=== PATIENT | male | born 1935 | race Caucasian/White ===

== ENCOUNTER 2022-05-20 14:14 | Inpatient (IN) | payer MEDICARE ==
[~2022-05-20] VITALS: Ht 172.7 cm; Wt 81.2 kg
--- NOTE | 2022-05-20 14:48 | NUR ---
MOVE SHEET SUBMITTED.
--- NOTE | 2022-05-20 15:10 | NUR ---
established IV line lefrt arm , blood sample obtained sent to lab
[2022-05-20] MEDS ORDERED: ATOR80TA PO (15:13)
[2022-05-20] MEDS ORDERED: CLOP75TA15 PO (15:13)
[2022-05-20] MEDS ORDERED: PROP10DR2 EACHEYE (15:13)
[2022-05-20] MEDS ORDERED: ASPI-1169 PO (15:13)
--- NOTE | 2022-05-20 15:15 | NUR ---
TAKEN TO CT VIA JAZMINE
--- NOTE | 2022-05-20 15:31 | NUR ---
COVID SWAB DONE AND SENT TO LAB
[2022-05-20 15:37] LABS: BASOPHILS % (AUTO) 0.4 % (0.0-2.0); EOSINOPHILS % (AUTO) 1.6 % (0.0-6.0); HEMATOCRIT 49 % (39-51); HEMOGLOBIN 16.6 g/dL (13.5-17.5); LYMPHOCYTES # (AUTO) 1.2 K/uL (0.8-4.8); MEAN CORPUSCULAR HGB CONC 34 g/dl (31.0-36.0); MEAN CORPUSCULAR VOLUME 101 fL (80-96); MONOCYTES # (AUTO) 0.7 K/uL (0.1-1.30); MONOCYTES % (AUTO) 10.2 % (2.0-12.0); NEUTROPHILS # (AUTO) 4.8 K/uL (1.8-8.9); NEUTROPHILS % (AUTO) 69.8 % (43.0-81.0); PLATELET COUNT (AUTO) 152 K/uL (150-450); RED BLOOD CELL COUNT(AUTO) 4.83 MIL/uL (4.5-6.0); WHITE BLOOD COUNT (AUTO) 6.8 K/uL (4.3-11.0)
[2022-05-20 15:56] LABS: ALANINE AMINOTRANSFERASE 36 U/L (12-78); ALBUMIN 3.5 g/dL (3.4-5.0); ALKALINE PHOSPHATASE 76 U/L (46-116); ASPARTATE AMINOTRANSFERASE 65 U/L (15-37); BILIRUBIN,DIRECT 0.2 mg/dL (0.0-0.2); BILIRUBIN,TOTAL 0.8 mg/dL (0.2-1.0); CALCIUM, SERUM 8.6 mg/dL (8.5-10.1); CARBON DIOXIDE 24 mmol/L (21-32); CHLORIDE 99 mmol/L (98-107); CREATININE 1.3 mg/dL (0.6-1.3); GLUCOSE 132 mg/dL (74-106); POTASSIUM 3.7 mmol/L (3.5-5.1); SODIUM SERUM 132 mmol/L (136-145); TOTAL PROTEIN, SERUM 7.8 g/dL (6.4-8.2); UREA NITROGEN, BLOOD 15 mg/dL (7-18)
[2022-05-20 17:12] LABS: THYROID STIMULATING HORMONE 1.833 uIU/mL (0.358-3.74)
[2022-05-20] MEDS ORDERED: ONDANSETRON HCL/PF 4 MG/2 ML VIAL IVP PRN (17:30)
[2022-05-20] MEDS ORDERED: Z GUARD REMEDY 4 OZ OINT TP PRN (17:30)
[2022-05-20] MEDS ORDERED: ACETAMINOPHEN 325 MG TABLET PO PRN (17:30)
--- NOTE | 2022-05-20 19:25 | NUR ---
PT AWAKE AND ALERT RESTING COMFORTABLY TOLERATING RA WELL. V/S WNL.CALL LIGHT WITHIN REACH.
--- NOTE | 2022-05-20 19:30 | NUR ---
bed 108
--- NOTE | 2022-05-20 19:34 | NUR ---
CALLED FOR REPORT. NURSE NOT AVAILABLE.
--- NOTE | 2022-05-20 19:58 | NUR ---
RN NOTES RECEIVED ER ADMISSION REPORT FROM MARLIN VENTURA. ALL PERTINENT ADMISSION INFO REGARDING PT NOTED. WILL WAIT FOR PT TO BE TRANSFERRED TO UNIT AND ADDRESS NEEDS ACCORDINGLY. PRINTING ROLLER HANDLER MADE AWARE.
--- NOTE | 2022-05-20 19:58 | NUR ---
REPORT GIVEN TO MARLIN RAGLAND FOR LELA
--- NOTE | 2022-05-20 20:10 | NUR ---
PT TRANSPORTED TO ROOM 106 VIA [facility] IN STABLE CONDITION
--- NOTE | 2022-05-20 20:10 | NUR ---
RN NOTES RECEIVED PT FROM ER VIA [facility] ACCOMPANIED BY 2 ER STAFF AND TRANSFERRED TO BED VIA 2 PERSON ASSIST. PT IS A/OX4; ON ROOM AIR WITH RESPIRATIONS EVEN AND UNLABORED. COMPREHENSIVE PHYSICAL ASSESSMENT AND PATIENT CARE DONE. CALL LIGHT WITHIN REACH, SAFETY MEASURES AND ISOLATION PRECAUTION IN PLACE, WILL CONTINUE MONITOR AND ASSESS THROUGHOUT THE SHIFT. WILL CARRY OUT MD ORDERS ACCORDINGLY. ANALYTICAL CONSULTANT MADE AWARE.
[2022-05-20 20:15] VITALS: BP 141/71
[2022-05-20] MEDS: ENOXAPARIN SODIUM 40 MG/0.4 ML DISP.SYRIN SQ SCH (20:25)
[2022-05-20] MEDS: IV 1/2NS 1000 ML 1,000 ML IV PRN (20:26)
[2022-05-20] MEDS: ATORVASTATIN 40 MG TABLET PO SCH (21:59)
[2022-05-21 04:00] VITALS: BP 150/85
--- NOTE | 2022-05-21 04:00 | NUR ---
RN NOTES PATIENT REMAINED TO BE IN NO SIGNS OF ACUTE RESPIRATORY DISTRESS ,SAFE ENVIRONMENT MAINTAINED FOR PT. AM PATIENT CARE ASSISTANCE RENDERED. WILL CONTINUE TO MONITOR AND REASSESS FOR ANY CHANGES THROUGHOUT THE SHIFT.
[2022-05-21 06:28] LABS: BASOPHILS % (AUTO) 0.4 % (0.0-2.0); HEMATOCRIT 46 % (39-51); HEMOGLOBIN 15.7 g/dL (13.5-17.5); LYMPHOCYTES # (AUTO) 1.4 K/uL (0.8-4.8); LYMPHOCYTES % (AUTO) 27.4 % (20.0-44.0); MEAN CORPUSCULAR HGB CONC 34 g/dl (31.0-36.0); MEAN CORPUSCULAR VOLUME 101 fL (80-96); MONOCYTES # (AUTO) 0.6 K/uL (0.1-1.30); MONOCYTES % (AUTO) 11.5 % (2.0-12.0); NEUTROPHILS # (AUTO) 2.9 K/uL (1.8-8.9); NEUTROPHILS % (AUTO) 57.7 % (43.0-81.0); PLATELET COUNT (AUTO) 133 K/uL (150-450); RED BLOOD CELL COUNT(AUTO) 4.57 MIL/uL (4.5-6.0)
[2022-05-21 06:54] LABS: BILIRUBIN,TOTAL 0.8 mg/dL (0.2-1.0); CALCIUM, SERUM 8.2 mg/dL (8.5-10.1); CREATININE 0.9 mg/dL (0.6-1.3); MAGNESIUM 2.4 mg/dL (1.8-2.4); PHOSPHORUS 2.8 mg/dL (2.5-4.9); POTASSIUM 3.6 mmol/L (3.5-5.1); TOTAL PROTEIN, SERUM 6.9 g/dL (6.4-8.2)
--- NOTE | 2022-05-21 07:28 | NUR ---
ORACLE APPLICATION CONSULTANT OPENING NOTES: RECEIVED PATIENT IN BED, ASLEEP BUT EASILY AROUSES TO VOICE AND SOUND. NO SOB NOTED, BREATHING EVEN AND UNLABORED. ON RA WITH OXYGEN SATURATION OF 94%. IV ACCESS ON LEFT HAND INTACT, INFUSING WITH 1/2 NS @ 75 ML/HR, IV SITE PATENT, WITH NO S/S INFILTRATION. CALL LIGHT WITHIN REACH. BED LOCKED AND IN LOWEST POSITION. ALL SAFETY MEASURES KIN PLACE. ISOLATION PRECAUTION MAINTAINED. INSTRUCTED PATIENT TO USE CALL LIGHT IF NEEDED. WILL CONTINUE TO MONITOR PATIENT THROUGHOUT SHIFT.
[2022-05-21] MEDS: CLOPIDOGREL BISULFATE 75 MG TABLET PO SCH (08:08)
[2022-05-21] MEDS: ASPIRIN 81 MG TAB.CHEW PO SCH (08:08)
[2022-05-21] MEDS: IV 1/2NS 1000 ML 1,000 ML IV PRN (08:09)
--- NOTE | 2022-05-21 10:30 | NUR ---
PT WISAM CAME BY AND ASSESSED THE PATIENT
[2022-05-21 12:00] VITALS: BP 164/64
--- NOTE | 2022-05-21 19:05 | NUR ---
WATER ANALYST CLOSING NOTES: PATIENT IN BED, AWAKE, ALERT, ORIENTED X 3. PATIENT REMAINS STABLE THE ENTIRE SHIFT. NO C/O PAIN OR DISCOMFORT AT THIS TIME. WILL ENDORSE TO INCOMING NURSE FOR CONTINUITY OF CARE.
--- NOTE | 2022-05-21 19:30 | NUR ---
MS RN OPENING NOTES RECEIVED PATIENT IN BED AWAKE. A/O X3. BREATHING EVEN AND NON-LABORED ON ROOM AIR. NOT IN APPARENT DISTRESS. DENIES PAIN AT THIS TIME. HAS LEFT HAND IV ACCESS #20G WITH 1/2 NS RUNNING AT 75 ML/HR. NO S/S OF INFILTRATION NOTED. ON CONTACT AND DROPLET PRECAUTIONS. SAFETY MEASURES IN PLACE: BED LOW AND LOCKED, BED ALARM ON, SIDE RAILS UP X2, CALL LIGHT WITHIN REACH. WILL CONTINUE POC.
[2022-05-21 20:00] VITALS: BP 120/64
[2022-05-21] MEDS: ENOXAPARIN SODIUM 40 MG/0.4 ML DISP.SYRIN SQ SCH (21:00)
[2022-05-21] MEDS: ATORVASTATIN 40 MG TABLET PO SCH (21:01)
[2022-05-22] MEDS: IV 1/2NS 1000 ML 1,000 ML IV PRN ×2 (01:45→14:33)
[2022-05-22 04:00] VITALS: BP 163/79
--- NOTE | 2022-05-22 07:21 | NUR ---
MS RN CLOSING NOTES PATIENT LAYING IN BED ASLEEP, EASY TO AROUSE. A/O X3. ABLE TO VERBALIZE NEEDS. NO SOB OR NOTED, TOLERATING ROOM AIR WELL. NOT IN ACUTE DISTRESS. NO C/O PAIN. AFEBRILE. HAS LEFT HAND IV ACCESS #20G WITH 1/2 NS RUNNING AT 75 ML/HR. INTACT, PATENT AND FLUSHING. ALL DUE MEDS GIVEN AND NEEDS ATTENDED. HAS BILATERAL KNEE SCABS, NO BLEEDING NOTED. AMBULATORY WITH ASSIST. SAFETY MEASURES MAINTAINED. WILL ENDORSE TO NEXT SHIFT FOR LELA.
--- NOTE | 2022-05-22 07:28 | NUR ---
FOOD PROCESSING CHEMIST OPENING NOTES: RECEIVED PATIENT AWAKE, NO SOB NOTED, BREATHING EVEN AND UNLABORED. NOT IN DISTRESS, DENIES ANY PAIN. IV ACCESS ON LEFT HAND INTACT, INFUSING WITH 1/2 NS @ 75 ML/HR. CALL LIGHT WITHIN REACH. BED LOCKED AND IN LOWEST POSITION. ALL SAFETY MEASURES KIN PLACE. ISOLATION PRECAUTION MAINTAINED. CALL LIGHT WITHIN REACH. INSTRUCTED PATIENT TO USE CALL LIGHT IF NEEDED.WILL CONTINUE PLAN OF CARE.
[2022-05-22 07:34] LABS: BASOPHILS % (AUTO) 0.5 % (0.0-2.0); EOSINOPHILS % (AUTO) 4.1 % (0.0-6.0); HEMATOCRIT 43 % (39-51); HEMOGLOBIN 14.7 g/dL (13.5-17.5); LYMPHOCYTES # (AUTO) 1.2 K/uL (0.8-4.8); LYMPHOCYTES % (AUTO) 25.3 % (20.0-44.0); MEAN CORPUSCULAR HGB CONC 34 g/dl (31.0-36.0); MEAN CORPUSCULAR VOLUME 99 fL (80-96); MONOCYTES # (AUTO) 0.4 K/uL (0.1-1.30); MONOCYTES % (AUTO) 9.5 % (2.0-12.0); NEUTROPHILS # (AUTO) 2.9 K/uL (1.8-8.9); NEUTROPHILS % (AUTO) 60.6 % (43.0-81.0); PLATELET COUNT (AUTO) 151 K/uL (150-450); RED BLOOD CELL COUNT(AUTO) 4.31 MIL/uL (4.5-6.0); WHITE BLOOD COUNT (AUTO) 4.7 K/uL (4.3-11.0)
[2022-05-22 07:59] LABS: CALCIUM, SERUM 8.3 mg/dL (8.5-10.1); MAGNESIUM 2.2 mg/dL (1.8-2.4); PHOSPHORUS 3.2 mg/dL (2.5-4.9); POTASSIUM 3.4 mmol/L (3.5-5.1)
[2022-05-22] MEDS: CLOPIDOGREL BISULFATE 75 MG TABLET PO SCH (08:02)
[2022-05-22] MEDS: ASPIRIN 81 MG TAB.CHEW PO SCH (08:03)
--- NOTE | 2022-05-22 10:12 | NUR ---
RN NOTES NOTED WITH ORDER OF CHEST XRAY INFORMED DULL COAT MILL OPERATOR, PER KELVIN IT'S NOT POPULATING IN THERE SYSTEM AND WILL TRY TO FIGURE OUT. WILL CONTINUE POC.
[2022-05-22] MEDS ORDERED: POTASSIUM CHLORIDE 20 MEQ TAB.PRT.SR PO SCH (11:00)
[2022-05-22 12:00] VITALS: BP 145/78
--- NOTE | 2022-05-22 12:42 | NUR ---
RN NOTES XRAY DONE.
--- NOTE | 2022-05-22 17:08 | NUR ---
RN NOTES INFORMED MD OF 800AM BLOOD PRESSURE 161/85 4PM 155/80, NO C/O OF CHEST PAIN, NO C/O OF DIZZINESS OR HEADACHE, RUDI GLAZE CARRIER NOTIFIED, NO NEW ORDERS NOTED.
--- NOTE | 2022-05-22 18:05 | NUR ---
MS RN CLOSING NOTES PATIENT LAYING IN BED AWAKE, ALERT AND VERBALLY RESPONSIVE, NOTED WITH CONFUSION,DENIES ANY PAIN, NO SOB NOTED, TOLERATING ROOM AIR WELL SATURATION @94%. NOT IN ACUTE DISTRESS. AFEBRILE. HAS LEFT HAND IV ACCESS #20G WITH 1/2 NS RUNNING AT 75 ML/HR. INTACT, PATENT AND FLUSHING. HAS BILATERAL KNEE SCABS, NO BLEEDING NOTED. AMBULATORY WITH ASSIST. SAFETY MEASURES MAINTAINED. BED ALARM ON. CALL LIGHT WITHIN REACH. WILL ENDORSE TO NEXT SHIFT FOR LELA. Addendum: 05/22/22 at 1922 by SHIVANI HOLDEN RN NOTED EPISODES OF RESTLESSNESS AND STANDING UP AND WALKING TO THE BATHROOM WITHOUT ASKING FOR HELP, REDIRECT PATIENT MULTIPLE TIMES, INFORMED MD, AWAITING ORDERS, ENDORSED TO PRIMER ASSEMBLER NURSE.
--- NOTE | 2022-05-22 19:23 | NUR ---
RN NOTES CALLED XRAY PER KELVIN THERE'S NO RESULT YET, WILL FOLLOW UP, ENDORSE TO REFRIGERATING ENGINEER NURSE.
[2022-05-22 20:00] VITALS: BP 143/71
[2022-05-22] MEDS: ATORVASTATIN 40 MG TABLET PO SCH (21:02)
[2022-05-22] MEDS: ENOXAPARIN SODIUM 40 MG/0.4 ML DISP.SYRIN SQ SCH (21:02)
--- NOTE | 2022-05-22 21:47 | NUR ---
MS RN OPENING NOTE PT RECEIVED IN BED, AWAKE, A&O X3, CALM, COOPERATIVE. PT ON RA WITH CURRENT O2SAT OF 95%; NO S/S OF RESP DISTRESS, NO SOB OR COUGH, NON-LABORED AND EQUAL BREATHING. VSS, WILL CONTINUE TO MONITOR NEEDED. PT NOTED TO BE AMBULATORY WITH ASSIST. IV ACCESS ON LEFT HAND 20G INTACT AND PATENT, FLUSHES EASILY WITH NO RESISTANCE; 1/2 NS INFUSING AT 75 ML/HR. BED IN LOWEST POSITION, CALL LIGHT WITHIN REACH, SIDE RAILS UP X2. WILL CONTINUE TO MONITOR THROUGHOUT THE NIGHT.
[2022-05-23 04:00] VITALS: BP 141/62
[2022-05-23] MEDS: IV 1/2NS 1000 ML 1,000 ML IV PRN (05:27)
--- NOTE | 2022-05-23 06:48 | NUR ---
MS RN CLOSING NOTE PT REMAINS IN BED, AWAKE, A&O X3 WITH PERIODS OF CONFUSION BUT OTHERWISE CALM, COOPERATIVE. CONTINUES TO BE ON RA WITH O2SAT RANGING FROM 95%-96%; NO S/S OF RESP DISTRESS, NO SOB OR COUGH, NON-LABORED AND EQUAL BREATHING. VSS THROUGHOUT THE NIGHT WITH NO SIGNIFICANT CHANGES. IV ACCESS ON LEFT HAND 20G INTACT AND PATENT, FLUSHES EASILY WITH NO RESISTANCE; 1/2 NS INFUSING AT 75 ML/HR. ALL DUE MEDS ADMINISTERED DURING THE NIGHT. BED IN LOWEST POSITION, CALL LIGHT WITHIN REACH, SIDE RAILS UP X2. WILL ENDORSE TO DAYSHIFT NURSE TO CONTINUE CARE.
--- NOTE | 2022-05-23 07:52 | NUR ---
MANAGER METROLOGY OPENING NOTES: RECEIVED PATIENT AWAKE, NO SOB NOTED, BREATHING EVEN AND UNLABORED. NOT IN DISTRESS, DENIES ANY PAIN. IV ACCESS ON LEFT HAND PATENT AND INTACT, INFUSING WITH 1/2 NS @ 75 ML/HR. CALL LIGHT WITHIN REACH. BED LOCKED AND IN LOWEST POSITION. ALL SAFETY MEASURES KIN PLACE. ISOLATION PRECAUTION MAINTAINED. CALL LIGHT WITHIN REACH. INSTRUCTED PATIENT TO USE CALL LIGHT IF NEEDED.WILL CONTINUE PLAN OF CARE.
[2022-05-23] MEDS: CLOPIDOGREL BISULFATE 75 MG TABLET PO SCH (08:04)
[2022-05-23] MEDS: ASPIRIN 81 MG TAB.CHEW PO SCH (08:04)
--- NOTE | 2022-05-23 09:17 | NUR ---
WOUND CARE CONSULT: REVIEWED CHART, NURSING DOCUMENTATION AND PHOTO WHICH INDICATES DRY ABRASIONS TO BILATERAL KNEES, PRESENT ON ADMISSION. OBSERVE AREAS. DISCUSSED SKIN PROTECTION WITH NURSING STAFF. WILL SEE PRN. IN AGREEMENT WITH PLAN OF CARE.
--- NOTE | 2022-05-23 10:53 | NUR ---
RN NOTES CALLED XRAY TO FOLLOW UP RESULTS FOR 05/22, PER FREIGHT BROKER AGENT STILL PENDING, XRAY 05/23 WAS DONE. WILL CONTINUE PLAN OF CARE.
--- NOTE | 2022-05-23 14:48 | NUR ---
RN NOTES PATIENT LEFT THE HOSPITAL WITH 2 EMT'S [employer]IA [employer]. ALL PERSONAL BELONGINGS AND DISCHARGE PAPER WORKS RELEASED TO THE PATIENT. PATIENT IS STABLE DURING DISCHARGE.
== END 2022-05-23 14:35 | DRG 73 ==
LOC: ER 14:16 → TELE1 19:34 → MEDSG1 21:20
PROVIDERS: ADMIT Internal Medicine; ATTEND Nurse Practitioner Acute Care
DX: G90.8 Other disorders of autonomic nervous system (principal); U07.1 COVID-19; E87.1 Hypo-osmolality and hyponatremia; E86.0 Dehydration; E78.5 Hyperlipidemia, unspecified; R29.6 Repeated falls; G30.9 Alzheimer's disease, unspecified; Z86.73 Personal history of transient ischemic attack (TIA), and cerebral infarction without residual deficits; Z79.02 Long term (current) use of antithrombotics/antiplatelets; Z79.82 Long term (current) use of aspirin; Z79.899 Other long term (current) drug therapy; F02.80 Dementia in other diseases classified elsewhere, unspecified severity, without behavioral disturbance, psychotic disturbance, mood disturbance, and anxiety; E88.09 Other disorders of plasma-protein metabolism, not elsewhere classified; I10 Essential (primary) hypertension; W19.XXXA Unspecified fall, initial encounter; Y92.9 Unspecified place or not applicable
CPT/HCPCS: 36415; 70450-TC; 71045-TC; 73564-TC; 80048-TC; 80053-TC; 80076-TC; 83735-TC; 84100-TC; 84443-TC; 84484-TC; 85025-TC; 85378-TC; 85730-TC; 86140-TC; 87081-TC; 97112-TC; 97116-TC; 97530-TC; A6403; C9803; G0378; J1650; J3490

== ENCOUNTER 2023-03-03 05:04 | Emergency (ER) | payer MEDICARE ==
[~2023-03-03] VITALS: Ht 175.3 cm; Wt 99.8 kg
[~2023-03-03 05:04] MED LIST: ASPI-1169 PO; ATOR80TA PO; CLOP75TA15 PO; PROP10DR2 EACHEYE
[2023-03-03] MEDS ORDERED: TDAP [DIPH/PERTUSSIS/TET] 0.5 ML VIAL IM ONE ×2 (06:00→06:15)
[2023-03-03 09:51] VITALS: BP 152/78; TEMP 98; O2SAT 96
== END 2023-03-03 09:51 | disposition home or self-care (01) ==
LOC: ER 05:10
DX: S41.112A Laceration without foreign body of left upper arm, initial encounter (principal); S09.8XXA Other specified injuries of head, initial encounter; G31.9 Degenerative disease of nervous system, unspecified; G93.89 Other specified disorders of brain; G30.9 Alzheimer's disease, unspecified; F02.80 Dementia in other diseases classified elsewhere, unspecified severity, without behavioral disturbance, psychotic disturbance, mood disturbance, and anxiety; I10 Essential (primary) hypertension; E78.5 Hyperlipidemia, unspecified; Z79.899 Other long term (current) drug therapy; W01.0XXA Fall on same level from slipping, tripping and stumbling without subsequent striking against object, initial encounter; Y93.89 Activity, other specified; Y92.89 Other specified places as the place of occurrence of the external cause; Y99.8 Other external cause status
CPT/HCPCS: 70450-TC; 72125-TC; 90715

== ENCOUNTER 2023-04-19 07:14 | Emergency (ER) | payer MEDICARE ==
[~2023-04-19] VITALS: Ht 175.3 cm; Wt 95.3 kg
[2023-04-19] MEDS ORDERED: HYDROCODONE/APAP 5/325MG TABLET PO ONE (07:30)
[2023-04-19] MEDS ORDERED: HYDROCODONE/APAP 5/325MG TABLET ONE (07:44)
[2023-04-19] MEDS ORDERED: FURO-144 PO (07:48)
[2023-04-19] MEDS ORDERED: POTA8TAB3 PO (07:48)
[2023-04-19] MEDS ORDERED: ACET-868 PO (07:48)
[2023-04-19] MEDS ORDERED: LOSA25TA27 PO (07:48)
[2023-04-19] MEDS ORDERED: IBUP-1955 PO (07:48)
[2023-04-19 07:49] LABS: BASOPHILS % (AUTO) 0.7 % (0.0-2.0); EOSINOPHILS # (AUTO) 0.2 K/uL (0.0-0.7); EOSINOPHILS % (AUTO) 3.1 % (0.0-6.0); HEMATOCRIT 43 % (39-51); HEMOGLOBIN 14.4 g/dL (13.5-17.5); LYMPHOCYTES # (AUTO) 0.5 K/uL (0.8-4.8); LYMPHOCYTES % (AUTO) 9.8 % (20.0-44.0); MEAN CORPUSCULAR HEMOGLOBIN 34 PG (26.0-33.0); MEAN CORPUSCULAR HGB CONC 34 g/dl (31.0-36.0); MEAN CORPUSCULAR VOLUME 102 fL (80-96); MONOCYTES # (AUTO) 0.4 K/uL (0.1-1.30); MONOCYTES % (AUTO) 7.5 % (2.0-12.0); NEUTROPHILS # (AUTO) 4.4 K/uL (1.8-8.9); NEUTROPHILS % (AUTO) 78.9 % (43.0-81.0); PLATELET COUNT (AUTO) 199 K/uL (150-450); RED BLOOD CELL COUNT(AUTO) 4.22 MIL/uL (4.5-6.0); RED CELL DISTRIBUTION WIDTH 14.1 % (11.5-15.0); WHITE BLOOD COUNT (AUTO) 5.6 K/uL (4.3-11.0)
[2023-04-19 08:04] VITALS: BP 131/71; TEMP 98; O2SAT 100
[2023-04-19 08:10] LABS: ALANINE AMINOTRANSFERASE 31 U/L (12-78); ALBUMIN 3.7 g/dL (3.4-5.0); ALKALINE PHOSPHATASE 79 U/L (46-116); ASPARTATE AMINOTRANSFERASE 19 U/L (15-37); BILIRUBIN,DIRECT 0.2 mg/dL (0.0-0.2); BILIRUBIN,TOTAL 0.9 mg/dL (0.2-1.0); CALCIUM, SERUM 8.8 mg/dL (8.5-10.1); CHLORIDE 103 mmol/L (98-107); CREATININE 1.3 mg/dL (0.6-1.3); GLUCOSE 113 mg/dL (74-106); POTASSIUM 4.1 mmol/L (3.5-5.1); SODIUM SERUM 137 mmol/L (136-145); TOTAL PROTEIN, SERUM 7.1 g/dL (6.4-8.2); UREA NITROGEN, BLOOD 19 mg/dL (7-18)
[2023-04-19 08:36] LABS: CARBON DIOXIDE 26 mmol/L (21-32)
[2023-04-19 10:25] LABS: APPEARANCE,URINE CLEAR (CLEAR); BILIRUBIN,URINE NEGATIVE (NEGATIVE); BLOOD, URINE TRACE-INTA Ery/uL (NEGATIVE); KETONES,URINE NEGATIVE (NEGATIVE); LEUKOCYTE ESTERASE ,URINE 2+ (NEGATIVE); NITRITE, URINE NEGATIVE (NEGATIVE); PROTEIN,URINE NEGATIVE (NEGATIVE); UGLUCOSE NEGATIVE (NEGATIVE); UROBILINOGEN,URINE 0.2 EU/dL (0.2)
[2023-04-19 10:26] LABS: COLOR,URINE LIGHT YELLOW (YELLOW)
[2023-04-19 10:41] LABS: RBC,URINE 0-2 /HPF (0-2)
[2023-04-19 10:42] LABS: ADD URINE CULTURE YES; SQUAMOUS EPITHELIAL CELL,UR Rare /HPF (None Seen)
[2023-04-19 10:43] LABS: BACTERIA,URINE Few /HPF (None Seen)
[2023-04-19] MEDS ORDERED: CEFTRIAXONE 1GM BAG (ER ONLY) 50 ML IV ONE (10:44)
[2023-04-19] MEDS ORDERED: CEPH500C2 PO (10:53)
[2023-04-19] MEDS ORDERED: CEFTRIAXONE 1 G in IV D5W 50 ML IV ONE (11:00)
== END 2023-04-19 12:54 | disposition home or self-care (01) ==
LOC: ER 07:33
DX: M16.0 Bilateral primary osteoarthritis of hip (principal); N39.0 Urinary tract infection, site not specified; K57.30 Diverticulosis of large intestine without perforation or abscess without bleeding; R60.0 Localized edema; G30.9 Alzheimer's disease, unspecified; F02.80 Dementia in other diseases classified elsewhere, unspecified severity, without behavioral disturbance, psychotic disturbance, mood disturbance, and anxiety; I10 Essential (primary) hypertension; E78.5 Hyperlipidemia, unspecified; Z79.899 Other long term (current) drug therapy; Z79.82 Long term (current) use of aspirin
CPT/HCPCS: 99285; 93970; 71250; 96365; 71045; 93005; 74176; 85025; 80048; 87086; 80076; 81001; 36415; 84484; 83880; J0696 ×2; J7060

== ENCOUNTER 2023-07-05 09:29 | Inpatient (IN) | payer MEDICARE ==
[~2023-07-05] VITALS: Ht 165.1 cm; Wt 96.7 kg
[~2023-07-05 09:29] MED LIST changes: +ACET-868 PO; +CEPH500C2 PO; +FURO-144 PO; +IBUP-1955 PO; +LOSA25TA27 PO; +POTA8TAB3 PO
[2023-07-05] MEDS ORDERED: FURO80TA3 PO (10:04)
[2023-07-05] MEDS ORDERED: METH-647 PO (10:04)
[2023-07-05] MEDS ORDERED: GABA-532 PO (10:04)
[2023-07-05] MEDS ORDERED: ACET-2605 PO (10:04)
[2023-07-05 11:04] LABS: INR 0.91 (0.91-1.10); PROTHROMBIN TIME 9.7 SECS (9.2-11.1)
[2023-07-05 11:06] LABS: ALANINE AMINOTRANSFERASE 98 U/L (12-78); ALBUMIN 3.3 g/dL (3.4-5.0); ALKALINE PHOSPHATASE 65 U/L (46-116); ASPARTATE AMINOTRANSFERASE 88 U/L (15-37); BILIRUBIN,TOTAL 0.6 mg/dL (0.2-1.0); CALCIUM, SERUM 8.6 mg/dL (8.5-10.1); CARBON DIOXIDE 19 mmol/L (21-32); CHLORIDE 100 mmol/L (98-107); GLUCOSE 114 mg/dL (74-106); NT-PRO BNP 293 pg/mL (0-125); POTASSIUM 5.7 mmol/L (3.5-5.1); SODIUM SERUM 129 mmol/L (136-145); TOTAL PROTEIN, SERUM 7.6 g/dL (6.4-8.2); UREA NITROGEN, BLOOD 15 mg/dL (7-18)
[2023-07-05 11:21] LABS: BASOPHILS % (AUTO) 0.7 % (0.0-2.0); EOSINOPHILS # (AUTO) 0.2 K/uL (0.0-0.7); EOSINOPHILS % (AUTO) 3.1 % (0.0-6.0); HEMATOCRIT 43 % (39-51); HEMOGLOBIN 14.3 g/dL (13.5-17.5); LYMPHOCYTES # (AUTO) 0.8 K/uL (0.8-4.8); LYMPHOCYTES % (AUTO) 15.8 % (20.0-44.0); MEAN CORPUSCULAR HEMOGLOBIN 35 PG (26.0-33.0); MEAN CORPUSCULAR HGB CONC 33 g/dl (31.0-36.0); MEAN CORPUSCULAR VOLUME 105 fL (80-96); MONOCYTES # (AUTO) 0.7 K/uL (0.1-1.30); MONOCYTES % (AUTO) 13.3 % (2.0-12.0); NEUTROPHILS # (AUTO) 3.3 K/uL (1.8-8.9); NEUTROPHILS % (AUTO) 67.1 % (43.0-81.0); PLATELET COUNT (AUTO) 175 K/uL (150-450); RED BLOOD CELL COUNT(AUTO) 4.12 MIL/uL (4.5-6.0); RED CELL DISTRIBUTION WIDTH 14.9 % (11.5-15.0); WHITE BLOOD COUNT (AUTO) 4.9 K/uL (4.3-11.0)
[2023-07-05] MEDS ORDERED: IV NS 0.9% 1,000 ML IV ONE (11:30)
[2023-07-05] MEDS ORDERED: ONDANSETRON HCL/PF 4 MG/2 ML VIAL IVP PRN (12:00)
[2023-07-05] MEDS ORDERED: ACETAMINOPHEN 325 MG TABLET PO PRN (12:00)
[2023-07-05] MEDS ORDERED: IV NS 0.9% 1,000 ML IV PRN (12:00)
[2023-07-05] MEDS ORDERED: MORPHINE SULFATE INJ 2 MG/ML DISP.SYRIN IV PRN (12:00)
[2023-07-05 12:39] LABS: APPEARANCE,URINE CLEAR (CLEAR); BILIRUBIN,URINE NEGATIVE (NEGATIVE); BLOOD, URINE TRACE-INTA Ery/uL (NEGATIVE); COLOR,URINE YELLOW (YELLOW); KETONES,URINE NEGATIVE (NEGATIVE); LEUKOCYTE ESTERASE ,URINE NEGATIVE (NEGATIVE); NITRITE, URINE NEGATIVE (NEGATIVE); PH,URINE 7.5 (5.0-8.0); PROTEIN,URINE 1+ mg/dl (NEGATIVE); UGLUCOSE NEGATIVE (NEGATIVE); UROBILINOGEN,URINE 0.2 EU/dL (0.2)
[2023-07-05] MEDS: GABAPENTIN 100 MG CAPSULE PO SCH ×2 (13:00→17:37)
[2023-07-05 13:18] LABS: ADD URINE CULTURE NO; BACTERIA,URINE None seen /HPF (None Seen); MUCUS,URINE Few /LPF (None Seen); WBC,URINE NONE SEEN /HPF (0-3)
[2023-07-05 14:41] VITALS: BP 157/69; TEMP 98.3; O2SAT 98
[2023-07-05 16:00] VITALS: BP 166/68; TEMP 98.4; O2SAT 96
[2023-07-05] MEDS: ENOXAPARIN SODIUM 40 MG/0.4 ML DISP.SYRIN SQ SCH (16:25)
[2023-07-05] MEDS: LOSARTAN POTASSIUM 25 MG TABLET PO SCH (17:37)
[2023-07-05 20:00] VITALS: BP 154/68; TEMP 98.4; O2SAT 98
[2023-07-06] VITALS: BP 130/60; TEMP 100.2; O2SAT 95
[2023-07-06 02:00] VITALS: TEMP 99.1
[2023-07-06 04:00] VITALS: BP 147/65; TEMP 98.2; O2SAT 95
[2023-07-06 07:36] LABS: BASOPHILS % (AUTO) 0.5 % (0.0-2.0); EOSINOPHILS # (AUTO) 0.1 K/uL (0.0-0.7); EOSINOPHILS % (AUTO) 1.9 % (0.0-6.0); HEMATOCRIT 38 % (39-51); HEMOGLOBIN 12.8 g/dL (13.5-17.5); LYMPHOCYTES % (AUTO) 21.8 % (20.0-44.0); MEAN CORPUSCULAR HEMOGLOBIN 34 PG (26.0-33.0); MEAN CORPUSCULAR HGB CONC 34 g/dl (31.0-36.0); MEAN CORPUSCULAR VOLUME 101 fL (80-96); MONOCYTES # (AUTO) 0.6 K/uL (0.1-1.30); MONOCYTES % (AUTO) 13.8 % (2.0-12.0); NEUTROPHILS # (AUTO) 2.9 K/uL (1.8-8.9); PLATELET COUNT (AUTO) 174 K/uL (150-450); RED BLOOD CELL COUNT(AUTO) 3.74 MIL/uL (4.5-6.0); RED CELL DISTRIBUTION WIDTH 14.9 % (11.5-15.0); WHITE BLOOD COUNT (AUTO) 4.6 K/uL (4.3-11.0)
[2023-07-06 07:49] LABS: BILIRUBIN,TOTAL 0.4 mg/dL (0.2-1.0); CALCIUM, SERUM 8.4 mg/dL (8.5-10.1); CREATININE 1.1 mg/dL (0.6-1.3); MAGNESIUM 2.3 mg/dL (1.8-2.4); PHOSPHORUS 3.1 mg/dL (2.5-4.9); POTASSIUM 3.7 mmol/L (3.5-5.1); TOTAL PROTEIN, SERUM 6.6 g/dL (6.4-8.2)
[2023-07-06 08:00] VITALS: BP 143/68; TEMP 99; O2SAT 95
[2023-07-06] MEDS ORDERED: POTASSIUM CHLORIDE 16 MEQ PO SCH (09:00)
[2023-07-06] MEDS ORDERED: FUROSEMIDE 80 MG TABLET PO SCH (09:00)
[2023-07-06] MEDS: CLOPIDOGREL BISULFATE 75 MG TABLET PO SCH (10:32)
[2023-07-06] MEDS: ASPIRIN 81 MG TAB.CHEW PO SCH (10:32)
[2023-07-06] MEDS: FUROSEMIDE 40 MG TABLET PO SCH (10:32)
[2023-07-06] MEDS: LOSARTAN POTASSIUM 25 MG TABLET PO SCH ×2 (10:33→17:11)
[2023-07-06] MEDS: ATORVASTATIN 40 MG TABLET PO SCH (10:33)
[2023-07-06] MEDS: GABAPENTIN 100 MG CAPSULE PO SCH ×3 (10:35→17:10)
[2023-07-06 12:00] VITALS: BP 135/65; TEMP 99.2; O2SAT 95
[2023-07-06] MEDS: ENOXAPARIN SODIUM 40 MG/0.4 ML DISP.SYRIN SQ SCH (12:40)
[2023-07-06 16:00] VITALS: BP 136/71; TEMP 98.8; O2SAT 95
[2023-07-07 06:10] LABS: CALCIUM, SERUM 8.4 mg/dL (8.5-10.1); CREATININE 1.1 mg/dL (0.6-1.3); MAGNESIUM 2.3 mg/dL (1.8-2.4); PHOSPHORUS 3.7 mg/dL (2.5-4.9); POTASSIUM 3.7 mmol/L (3.5-5.1)
[2023-07-07 06:22] LABS: THYROID STIMULATING HORMONE 2.654 uIU/mL (0.358-3.74); URIC ACID 5.9 mg/dL (2.6-7.2)
[2023-07-07] MEDS: ASPIRIN 81 MG TAB.CHEW PO SCH (08:59)
[2023-07-07] MEDS: CLOPIDOGREL BISULFATE 75 MG TABLET PO SCH (08:59)
[2023-07-07] MEDS: FUROSEMIDE 40 MG TABLET PO SCH (08:59)
[2023-07-07] MEDS: ATORVASTATIN 40 MG TABLET PO SCH (08:59)
[2023-07-07] MEDS: GABAPENTIN 100 MG CAPSULE PO SCH ×3 (08:59→17:48)
[2023-07-07] MEDS: LOSARTAN POTASSIUM 25 MG TABLET PO SCH ×2 (09:00→17:48)
[2023-07-07] MEDS: ENOXAPARIN SODIUM 40 MG/0.4 ML DISP.SYRIN SQ SCH (12:15)
[2023-07-07 22:00] VITALS: BP 135/65; TEMP 98.2; O2SAT 98
[2023-07-08] VITALS (7 sets, daily range): BP systolic 96–153; BP diastolic 46–105; TEMP 97.6–98.4; O2SAT 92–99
[2023-07-08 06:21] LABS: BASOPHILS % (AUTO) 0.5 % (0.0-2.0); EOSINOPHILS # (AUTO) 0.3 K/uL (0.0-0.7); EOSINOPHILS % (AUTO) 6.5 % (0.0-6.0); HEMATOCRIT 39 % (39-51); HEMOGLOBIN 13.2 g/dL (13.5-17.5); LYMPHOCYTES # (AUTO) 1.1 K/uL (0.8-4.8); LYMPHOCYTES % (AUTO) 23.7 % (20.0-44.0); MEAN CORPUSCULAR HEMOGLOBIN 34 PG (26.0-33.0); MEAN CORPUSCULAR HGB CONC 34 g/dl (31.0-36.0); MEAN CORPUSCULAR VOLUME 100 fL (80-96); MONOCYTES # (AUTO) 0.5 K/uL (0.1-1.30); MONOCYTES % (AUTO) 10.4 % (2.0-12.0); NEUTROPHILS # (AUTO) 2.7 K/uL (1.8-8.9); NEUTROPHILS % (AUTO) 58.9 % (43.0-81.0); PLATELET COUNT (AUTO) 168 K/uL (150-450); RED BLOOD CELL COUNT(AUTO) 3.84 MIL/uL (4.5-6.0); RED CELL DISTRIBUTION WIDTH 14.7 % (11.5-15.0); WHITE BLOOD COUNT (AUTO) 4.6 K/uL (4.3-11.0)
[2023-07-08 07:17] LABS: ALBUMIN 2.8 g/dL (3.4-5.0); BILIRUBIN,TOTAL 0.4 mg/dL (0.2-1.0); CALCIUM, SERUM 8.3 mg/dL (8.5-10.1); POTASSIUM 3.6 mmol/L (3.5-5.1); TOTAL PROTEIN, SERUM 6.4 g/dL (6.4-8.2)
[2023-07-08] MEDS: FUROSEMIDE 40 MG TABLET PO SCH (08:31)
[2023-07-08] MEDS: CLOPIDOGREL BISULFATE 75 MG TABLET PO SCH (08:31)
[2023-07-08] MEDS: ASPIRIN 81 MG TAB.CHEW PO SCH (08:31)
[2023-07-08] MEDS: ATORVASTATIN 40 MG TABLET PO SCH (08:31)
[2023-07-08] MEDS: GABAPENTIN 100 MG CAPSULE PO SCH ×3 (08:31→17:09)
[2023-07-08] MEDS: LOSARTAN POTASSIUM 25 MG TABLET PO SCH ×2 (08:32→17:09)
[2023-07-08] MEDS ORDERED: POTA20TA83 PO (08:43)
[2023-07-08] MEDS: ENOXAPARIN SODIUM 40 MG/0.4 ML DISP.SYRIN SQ SCH (12:07)
[2023-07-08] MEDS: FLUOCINONIDE 0.05% CREAM 60 GM TUBE TP SCH ×2 (14:51→17:21)
[2023-07-08] MEDS ORDERED: NEOMY SULF/BACITRAC ZN/POLY 15 GM TUBE TP SCH (17:00)
[2023-07-08] MEDS ORDERED: CLOTRIMAZOLE 1% 15 GM TUBE TP SCH (17:00)
== END 2023-07-08 21:13 | DRG 641 ==
LOC: ER 09:32 → MEDSG1 13:58 → TELE1 14:40 → MEDSG1 07-06 11:13
PROVIDERS: ADMIT Internal Medicine; ATTEND Internal Medicine
DX: E87.1 Hypo-osmolality and hyponatremia (principal); I50.32 Chronic diastolic (congestive) heart failure; I25.10 Atherosclerotic heart disease of native coronary artery without angina pectoris; E87.5 Hyperkalemia; I11.0 Hypertensive heart disease with heart failure; W01.0XXA Fall on same level from slipping, tripping and stumbling without subsequent striking against object, initial encounter; B35.1 Tinea unguium; E78.5 Hyperlipidemia, unspecified; E86.1 Hypovolemia; Z86.73 Personal history of transient ischemic attack (TIA), and cerebral infarction without residual deficits; R74.01 Elevation of levels of liver transaminase levels; R53.1 Weakness; L85.3 Xerosis cutis; I87.8 Other specified disorders of veins; S90.121A Contusion of right lesser toe(s) without damage to nail, initial encounter; X58.XXXA Exposure to other specified factors, initial encounter; Y93.9 Activity, unspecified; Y92.89 Other specified places as the place of occurrence of the external cause; Z20.822 Contact with and (suspected) exposure to COVID-19; K76.0 Fatty (change of) liver, not elsewhere classified
CPT/HCPCS: 36415; 70450-TC; 71045-TC; 72170-TC; 76700-TC; 80048-TC; 80053-TC; 80076-TC; 81001; 83605-TC; 83735-TC; 83880; 84100-TC; 84443-TC; 84484-TC; 84550-TC; 85025-TC; 85730-TC; 86850-TC; 93307-TC; 93970-TC; 97110-TC; 97116-TC; 97530-TC; 97535-TC; A4223; C9803; G0378; J1650; J7030